=== PATIENT | female | born 1965 | race Caucasian/White ===

== ENCOUNTER → 2017-01-27 | Outpatient (CLI) | payer BC ==
[~2017-01-27] MED LIST: ATORVASTATIN CA20 MG PO; K-DUR 20MEQ TA20 MEQ PO; LOVENOX80 MG/0.1 SC; MAXZIDE 25 MG-31 TAB PO; VICODIN 5/500 T1 TAB PO; WARFARIN SOD5 MG PO; ZYRTEC 10MG TAB10 MG PO
[2017-01-27 15:53] LABS: BUN 16 mg/dL (7-18)
[2017-01-27 15:54] LABS: GFR (ESTIMATED) 89 ML/MIN (59-)
== END ==
LOC: CARL-LAB 07:43
PROVIDERS: Internal Medicine Adolescent Medicine
DX: E78.5 Hyperlipidemia, unspecified (principal); Z86.711 Personal history of pulmonary embolism

== ENCOUNTER 2017-03-10 11:03 | Outpatient (CLI) | payer BC | END 2017-03-10 12:03 | LOC: ACC 11:03 | DX: Z79.01 Long term (current) use of anticoagulants (principal); Z51.81 Encounter for therapeutic drug level monitoring | CPT/HCPCS: G0463 ==

== ENCOUNTER 2017-04-06 09:29 | Outpatient (CLI) | payer BC | END 2017-04-06 14:29 | LOC: ACC 09:29 | DX: Z86.718 Personal history of other venous thrombosis and embolism (principal); Z79.01 Long term (current) use of anticoagulants; Z51.81 Encounter for therapeutic drug level monitoring | CPT/HCPCS: G0463 ==